=== PATIENT | female | born 1945 | race Caucasian/White ===

== ENCOUNTER 2018-07-11 13:00 | Outpatient (RCR) | payer MEDICARE, OTHER, SELFPAY | END 2018-07-24 14:11 | disposition home or self-care (01) | LOC: PT.CARL 13:00 | PROVIDERS: Visit Provider Orthopaedic Surgery | DX: M17.11 Unilateral primary osteoarthritis, right knee (principal); Z96.651 Presence of right artificial knee joint | CPT/HCPCS: 97014; 97110; 97116; 97140; 97163; 97164; G0283 ==

== ENCOUNTER 2021-10-07 10:24 | Emergency (ER) | payer MEDICARE, OTHER, SELFPAY ==
[2021-10-07 10:27] VITALS: BP 122/70; PULSE 64; RESP 18; TEMP 36.8; O2SAT 97; BMI 23.3
--- NOTE | 2021-10-07 10:30 | PC.NURSE ---
JAIRO GONZALEZ at
--- NOTE | 2021-10-07 10:37 | HMH.EDFALL ---
ED Disposition Clinical Impression: Chin laceration Qualifiers: Encounter type: initial encounter Qualified Code(s): S01.81XA - Laceration without foreign body of other part of head, initial encounter Fall Qualifiers: Encounter type: initial encounter Qualified Code(s): W19.XXXA - Unspecified fall, initial encounter Disposition: Home, Self-Care Condition on Discharge: Good Referrals: Zoltan Joe MD [Primary Care Provider] - - Critical Care Critical Care Time: No Attestation: On , the high probability of a clinically significant, sudden or life threatening deterioration of the following system(s) required my full and direct attention, intervention and personal management. The time I documented below is in addition to time spent performing reported procedures but includes the following listed in this critical care notation. Medical Decision Making - Misha Inquiry Pt receiving controlled substance: No Vital Signs: 10/07/21 10:27 10/07/21 11:19 10/07/21 11:30 Temperature 98.3 F Temperature Source Oral Pulse Rate 59 L 59 L Pulse Rate [Right Radial] 64 Respiratory Rate 18 18 Blood Pressure 126/69 120/75 Blood Pressure [Right Arm] 122/70 Blood Pressure Mean 92 95 Blood Pressure Mean [Right Arm] 87 Blood Pressure Source [Right Arm] Automatic Cuff Blood Pressure Position [Right Arm] Sitting 02 Sat by Pulse Oximetry 97 98 96 Oxygen Delivery Method Room Air Room Air 10/07/21 12:00 Temperature Temperature Source Pulse Rate 67 Pulse Rate [Right Radial] Respiratory Rate Blood Pressure 118/72 Blood Pressure [Right Arm] Blood Pressure Mean 90 Blood Pressure Mean [Right Arm] Blood Pressure Source [Right Arm] Blood Pressure Position [Right Arm] 02 Sat by Pulse Oximetry 96 Oxygen Delivery Method - Lab Data Lab Results 10/07/21 11:03: WBC 11.4 H, RBC 5.14, Hgb 14.6, Hct 47.2 H, MCV 91.7, MCH 28.4, MCHC 31.0 L, RDW 13.3, Plt Count 250, MPV 9.6, Neut % (Auto) 90.1 H, Lymph % (Auto) 6.0 L, Iron % (Auto) 2.6, Eos % (Auto) 0.7, Baso % (Auto) 0.5, Neut # (Auto) 10.3 H, Lymph # (Auto) 0.7, Iron # (Auto) 0.3, Eos # (Auto) 0.1, Baso # (Auto) 0.1, Total Counted 100, Neutrophils % (Manual) 84 H, Lymphocytes % (Manual) 13, Monocytes % (Manual) 3, Platelet Estimate Normal, RBC Morphology Normal 10/07/21 11:03: Sodium 138, Potassium 3.2 L, Chloride 98, Carbon Dioxide 31 H, Anion Gap 12.2, BUN 16, Creatinine 1.00, Estimated Creat Clear 49, Estimated GFR 54 L, Est GFR ( Amer) 65, Glucose 155 H, Calcium 10.5 H, Total Bilirubin 0.4, AST 40 H, ALT 41, Alkaline Phosphatase 104, Troponin I < 0.01, Total Protein 7.6, Albumin 4.4, Globulin 3.2, Albumin/Globulin Ratio 1.4 10/07/21 13:02: Troponin I < 0.01 Result diagrams: 10/07/21 11:03 10/07/21 11:03 Orders (Tests/Meds): ED MEDICATIONS Generic Name Dose Route Start Last Admin Trade Name Freq PRN Reason Stop Dose Admin Sodium Chloride 10 ml 10/07/21 10:51 Sodium Chloride 0.9% 10ml Flush Syringe IV 11/06/21 10:50 NEEDED PRN Maintain IV Site Discontinued Medications Generic Name Dose Route Start Last Admin Trade Name Freq PRN Reason Stop Dose Admin Lactated Ringer's 500 mls @ 999 mls/hr 10/07/21 12:00 10/07/21 12:07 Lactated Ringer's 1000 Ml Bag IV 10/07/21 12:30 999 mls/hr .Q31M ERI Administration Potassium Chloride 20 meq 10/07/21 11:55 10/07/21 12:07 Potassium Chloride 20meq Tab PO 10/07/21 11:56 20 meq ONCE ONE Administration ORDERS Category Date Time Status Troponin I Q3H Lab 10/07/21 16:45 Ordered Medical Decision Narrative: In review this is a 76-year-old female who presents after a fall. Hemodynamically stable and nontoxic-appearing. Patient's symptoms most likely consistent with a syncopal event. Has been a little dehydrated with diarrhea also possibility this is orthostatic/vasovagal but will evaluate for cardiac syncope as well. EKG shows normal sinus rhythm wit
--- NOTE | 2021-10-07 10:38 | PC.NURSE ---
lizzette notified of orders on pt, spoke with kiah
[2021-10-07 10:42] VITALS: BMI 23.3
--- NOTE | 2021-10-07 10:43 | ECG_ITS ---
APPROVED REPORT Exam: Resting ECG HR:59 bpm ECG Measurements Heart Rate [address] 161 P 67 QRSd 81 QRS -58 QT 413 T 76 QTc 412 Conclusion SINUS BRADYCARDIA LOW QRS VOLTAGE IN PRECORDIAL LEADS [QRS DEFLECTION < 1.0 mV IN CHEST LEADS] PATTERN CONSISTENT WITH PULMONARY DISEASE LEFT ANTERIOR FASCICULAR BLOCK [QRS AXIS <= -45, QR IN I, RS IN II] ABNORMAL ECG UNCONFIRMED REPORT Electronically signed by : Tushar Mohamud MD 10/07/2021 17:36:22
--- NOTE | 2021-10-07 10:43 | CT_ITS ---
FINAL REPORT TECHNIQUE: Axial CT images of the face were obtained without contrast. Coronal reformatted images were also obtained. This study was performed with techniques to keep radiation doses as low as reasonably achievable, (ALARA). Individualized dose reduction techniques using automated exposure control or adjustment of mA and/or kV according to the patient''s size were employed. CLINICAL HISTORY: fall, blood thinner, abrasions on chin FINDINGS: There is no evidence of fracture.The orbits are intact.The globes are intact. There is mild mucosal thickening of the ethmoid air cells. No soft tissue mass is seen. IMPRESSION: No fracture or acute bony abnormality identified. Reviewed, Interpreted and Dictated by Alexander Minaya III, MD Transcribed by Shira Mcintyre Authenticated and [facility]
--- NOTE | 2021-10-07 10:43 | CT_ITS ---
FINAL REPORT CLINICAL HISTORY: fall, blood thinner FINDINGS: Axial CT images of the cervical spine were obtained without contrast. Sagittal and coronal reformatted images were also obtained. This study was performed with techniques to keep radiation doses as low as reasonably achievable (ALARA). Individualized dose reduction techniques using automated exposure control or adjustment of mA and/or kV according to the patient's size were employed. There is no evidence of fracture or dislocation. There are moderate degenerative changes with osteophytes. There is multilevel mild neural foraminal narrowing. IMPRESSION: Mild degenerative changes with no acute bony abnormality. Reviewed, Interpreted and Dictated by Alexander Minaya III, MD Transcribed by Janice Cash Authenticated and [facility]
--- NOTE | 2021-10-07 10:43 | CT_ITS ---
FINAL REPORT CLINICAL HISTORY: fall, blood thinner FINDINGS: Axial images of the head were obtained without contrast. Coronal reformatted images were also obtained. This study was performed with techniques to keep radiation doses as low as reasonably achievable (ALARA). Individualized dose reduction techniques using automated exposure control or adjustment of mA and/or kV according to the patient''s size were employed. There is generalized age-appropriate atrophy. Periventricular low-attenuation areas are seen consistent with mild chronic ischemic changes. There is no evidence of intracranial hemorrhage or mass. There is no evidence of acute infarct. There is no evidence of shift of the midline structures. No skull abnormality is seen on the bone window images. IMPRESSION: Atrophy and mild periventricular chronic ischemic changes. No acute intracranial abnormality identified. Reviewed, Interpreted and Dictated by Alexander Minaya III, MD Transcribed by Janice Cash Authenticated and [facility]
--- NOTE | 2021-10-07 10:48 | PC.NURSE ---
pt to CT
--- NOTE | 2021-10-07 10:52 | PC.NURSE ---
contacted dr. gtz's office for medication list on pt, states she will fax it over
--- NOTE | 2021-10-07 10:56 | PC.NURSE ---
pt return from CT via wheelchair
[2021-10-07 11:17] LABS: Alanine Aminotransferase 41 U/L (12-78); Albumin Level 4.4 g/dl (3.5-5.0); Albumin/Globulin Ratio 1.4 (1.1-1.8); Alkaline Phosphatase 104 U/L (38-126); Anion Gap 12.2 mEq/L (5-15); Aspartate Amino Transferase 40 U/L (14-36); Bilirubin,Total 0.4 mg/dl (0.2-1.3); Blood Urea Nitrogen 16 mg/dl (7-17); Calcium 10.5 mg/dl (8.4-10.2); Carbon Dioxide 31 mmol/L (22.0-30.0); Chloride 98 mmol/L (98-107); Creatinine Clearance Estimated 49 mL/min (50-200); Estimated Glomerular Filt Rate 54 ml/min (>60); GFR (African American) 65 ML/MIN (>60); Globulin 3.2 g/dL (1.3-3.2); Glucose 155 mg/dl (74-100); Potassium 3.2 mmoL/L (3.5-5.1); Sodium 138 mmol/L (136-145); Total Protein,Serum 7.6 g/dl (6.3-8.2)
--- NOTE | 2021-10-07 11:17 | XR_ITS ---
FINAL REPORT CLINICAL HISTORY: Pt fell [employer], pain w swelling in Lt wrist FINDINGS: LEFT WRIST Three views demonstrate no acute fracture or dislocation. The visualized joint spaces are normally aligned. There is moderate degenerative change of the triscaphe joint. There is a chronic calcification along the dorsal aspect of the wrist. There is some soft tissue swelling. IMPRESSION: Swelling with no acute bony abnormality. Reviewed, Interpreted and Dictated by Alexander Minaya III, MD Transcribed by Conchis Collazo Authenticated and [facility]
[2021-10-07 11:19] VITALS: BP 126/69; PULSE 59; RESP 18; O2SAT 98
[2021-10-07 11:19] LABS: Basophils # 0.1 K/mm3 (0-0.2); Basophils % 0.5 % (0.1-2.0); Eosinophils # 0.1 K/mm3 (0.0-0.4); Eosinophils % 0.7 % (0.1-12.0); Hematocrit 47.2 % (37.0-47.0); Hemoglobin 14.6 g/dL (12.2-16.2); Lymphocytes # 0.7 K/mm3 (0.7-4.5); Mean Corpuscular Hemoglobin 28.4 pg (27.0-31.2); Mean Corpuscular Volume 91.7 fl (81-99); Mean Platelet Volume 9.6 fl (7.4-10.4); Monocytes # 0.3 K/mm3 (0.1-1.0); Monocytes % 2.6 % (1.7-9.3); Neutrophils # 10.3 K/mm3 (1.8-7.8); Neutrophils % 90.1 % (37.0-80.0); Platelet Count 250 K/mm3 (142-424); Red Blood Count 5.14 M/mm3 (4.20-5.40); Red Cell Distribution Width 13.3 % (11.5-17.5); White Blood Count 11.4 K/mm3 (4.8-10.8)
[2021-10-07 11:20] LABS: MANUAL DIFFERENTIAL MANUAL DIFFERENTIAL (MANUAL DIFF)
--- NOTE | 2021-10-07 11:27 | PC.NURSE ---
rad at BS for portable xray
[2021-10-07 11:30] VITALS: BP 120/75; PULSE 59; O2SAT 96
[2021-10-07 11:32] LABS: Troponin I < 0.01 ng/ml (0.00-0.034)
[2021-10-07 11:39] LABS: Lymphocytes % 13 % (10-50); Monocytes % 3 % (2-9); Neutrophils % 84 % (42-76); Total Cells Counted 100
[2021-10-07 11:40] LABS: Platelet Estimate Normal; RBC Morphology Normal
[2021-10-07 12:00] VITALS: BP 118/72; PULSE 67; O2SAT 96
--- NOTE | 2021-10-07 12:32 | PC.NURSE ---
wound cleaned and skin glued per request
[2021-10-07 13:36] LABS: Troponin I < 0.01 ng/ml (0.00-0.034)
[2021-10-07 14:33] VITALS: BP 121/70; PULSE 64; RESP 18; TEMP 36.7; O2SAT 97
== END 2021-10-07 14:35 | disposition home or self-care (01) ==
PROVIDERS: Emergency Provider Student in an Organized Health Care Education/Training Program; PCP Family Medicine
DX: S01.81XA Laceration without foreign body of other part of head, initial encounter (principal); Z79.01 Long term (current) use of anticoagulants; Z79.899 Other long term (current) drug therapy; Z88.0 Allergy status to penicillin; W19.XXXA Unspecified fall, initial encounter
CPT/HCPCS: 70450; 70486; 72125; 73110; 80053; 84484; 85007; 85025; 93005; 96360; 99285

== ENCOUNTER → 2022-05-20 09:59 | Outpatient (CLI) | payer MEDICARE, SELFPAY ==
--- NOTE | 2022-05-20 10:03 | MM_ITS ---
PROCEDURE INFORMATION: Exam: Bilateral Screening 3D Mammography Exam date and time: 05/20/2022 10:15 AM Age: 76 years old Clinical indication: Screening examination TECHNIQUE: Imaging protocol: Bilateral Screening tomosynthesis and 2D mammography including computer-aided detection (CAD) when performed. COMPARISON: MAMM-SCREENING DIRECT DIGITAL 06/30/2016 7:44 AM FINDINGS: MAMMOGRAPHY: Breast composition: There are scattered areas of fibroglandular density. Mass: None. Architectural distortion: None. Calcifications: No suspicious calcifications. Asymmetric density: None. Skin thickening: None. Axillary adenopathy: None. IMPRESSION: No mammographic evidence of malignancy. Annual screening is recommended unless otherwise clinically indicated. ASSESSMENT: BI-RADS Category 1: Negative
--- NOTE | 2022-05-20 10:03 | XR_ITS ---
FINAL REPORT TECHNIQUE: Bone densitometry calculations of the lumbar spine and hips were obtained. CLINICAL HISTORY: post menopausal FINDINGS: DEXA BONE DENSITY AXIAL SKELETON Using L1-4, the bone mineral density of the spine is 0.925 g/cm2, corresponding to T-score of -1.1 with a Z-score 1.4. Using the left hip, the bone mineral density of the femoral neck is 0.679 g/cm2, corresponding to a T-score of -1.5 with a Z-score of 0.7. Using the right hip, the bone mineral density of the femoral neck is 0.629 g/cm2, corresponding to a T-score of -2.0 with a Z-score of 0.2. NOTE: T-score: Standard deviation compared with peak bone mass of young adult mean. *Following the recommendations of the International Society of Bone densitometry, classification of hip BMD is based on the lower of two T-scores; total hip or femoral neck. IMPRESSION: Diminished bone mineral density of the lumbar spine and hips consistent with osteopenia. FRAX 10 year fracture risk is 3.8% for a hip fracture and 14% for a major osteoporotic fracture based on right hip scores. Reviewed, Interpreted and Dictated by Blanca Louise MD Transcribed by Conchis Collazo Authenticated and [facility]
== END ==
PROVIDERS: PCP Family Medicine; Visit Provider Family Medicine
DX: Z12.31 Encounter for screening mammogram for malignant neoplasm of breast (principal); Z78.0 Asymptomatic menopausal state
CPT/HCPCS: 77063; 77067; 77080

== ENCOUNTER 2023-07-12 16:12 | Outpatient (POV) | payer MEDICARE, SELFPAY | END 2023-07-12 23:59 | disposition home or self-care (01) | LOC: SC 16:13 | PROVIDERS: PCP Family Medicine; Visit Provider Dermatology | DX: Z00.00 Encounter for general adult medical examination without abnormal findings (principal) ==